=== PATIENT | female | born 1980 | race Caucasian/White ===

== ENCOUNTER 2019-06-19 12:01 | Outpatient (CLI) | payer MEDICAID, SELFPAY ==
[2019-06-19 13:33] LABS: ALT 81 U/L (14-59); AST 29 U/L (15-37); Albumin 4.4 g/dL (3.4-5.0); Alkaline Phosphatase 95 U/L (46-116); Anion Gap 9.2 mmol/L (3-11); BUN 14 mg/dL (7-18); Bilirubin, Total 0.2 mg/dL (0.2-1.0); CO2 25.8 mmol/L (21.0-32.0); CREATININE 0.74 mg/dL (0.55-1.02); Calcium 8.8 mg/dL (8.5-10.1); Chloride 106 mmol/L (98-107); Glucose 86 mg/dL (74-106); Potassium 4.7 mmol/L (3.5-5.1); Sodium 141 mmol/L (136-145); TSH (W/Ref FT4) 2.85 uIU/mL (0.36-3.74); Total Protein 7.1 g/dL (6.4-8.2)
[2019-06-22 16:27] LABS: PTH-Related Peptide <0.4 pmol/L (< or = 4.2)
== END 2019-06-19 12:21 ==
PROVIDERS: PCP Neuromusculoskeletal Medicine & OMM; Visit Provider Obstetrics & Gynecology Gynecology
DX: R63.5 Abnormal weight gain (principal)
CPT/HCPCS: 36415; 80053; 82397; 84443

== ENCOUNTER 2019-07-17 13:32 | Outpatient (CLI) | payer MEDICAID, SELFPAY ==
[2019-07-17 13:52] LABS: Mean Corp. HGB Concentration 33.3 g/dL (32.0-36.0); Mean Corpuscular Hemoglobin 37.7 pg (27.0-33.0); Mean Corpuscular Volume 113.2 fL (80-95); Mean Platelet Volume 9.9 fL (8.0-11.0); Platelet Count 350 x1000/uL (130-400); RBC 1.67 m/cumm (4.00-5.20); RBC Distribution Width 13.4 % (11.7-14.6); White Blood Cell Count 4.39 k/cumm (4.4-10.8)
[2019-07-17 14:24] LABS: HGB 6.3 g/dL (12.0-15.5)
[2019-07-17 14:25] LABS: HCT 18.9 % (36.0-46.0)
[2019-07-19 05:27] LABS: Vitamin D 25 Total 55.2 ng/ml (30-100)
== END 2019-07-17 13:52 ==
PROVIDERS: PCP Neuromusculoskeletal Medicine & OMM; Visit Provider Obstetrics & Gynecology Gynecology
DX: G47.00 Insomnia, unspecified (principal)
CPT/HCPCS: 36415; 82306; 85027